=== PATIENT | male | born 1940 | race Caucasian/White ===

== ENCOUNTER 2018-07-17 09:54 | Observation (INO) ==
[2018-07-17] MEDS ORDERED: CLINDAMYCIN INJ 900 MG in PREMIX 1 EACH IV STA (10:03)
[2018-07-17] MEDS ORDERED: ASPIRIN 325 MG TABLET ONE (10:26)
[2018-07-17 10:46] LABS: Basophils % 0.6 % (0.0-0.8); Eosinophils # 0.1 10*3/uL (0.0-0.87); Eosinophils % 2.1 % (0.00-10.9); Hematocrit 39.8 VOL% (42.0-52.0); Hemoglobin 13.2 GM/DL (14.0-18.0); Immature Granulocytes % 0.4 %; Immature Granulocytes Absolute 0.02 #; Lymphocytes # 1.2 10*3/uL (1.4-4.0); Lymphocytes % 25.2 % (21.2-54.2); Mean Corpuscular HGB Conc 33.2 GM/DL (32-36); Mean Corpuscular Hemoglobin 30 PG (27-34); Mean Corpuscular Volume 90.9 FL (87-102); Mean Platelet Volume 10.5 FL (9.6-12.0); Monocytes # 0.7 10*3/uL (0.11-0.8); Monocytes % 13.4 % (1.7-12.7); Neutrophils # 2.8 10*3/uL (1.4-7.4); Neutrophils % 58.3 % (38.7-73.9); Platelet Count 119 T/CUMM (130-400); Red Blood Count 4.38 MC/CUMM (3.8-5.5); White Blood Count 4.8 T/CUMM (4-12)
[2018-07-17] MEDS ORDERED: ASPIRIN 325 MG TABLET PO STA (10:55)
[2018-07-17 10:57] LABS: PT Patient Result 10.4 SECS; Partial Thromboplastin Time 23.8 SECS (0-40)
[2018-07-17 11:09] LABS: Alanine Aminotransferase 34 U/L (16-61); Albumin 3.6 G/DL (3.4-5.0); Alkaline Phosphatase 63 U/L (45-117); Aspartate Amino Transferase 19 U/L (0-37); Blood Urea Nitrogen 20 MG/DL (7-18); Calcium 8.5 MG/DL (8.5-10.1); Glucose 144 MG/DL (74-106); Potassium 4.3 MMOL/L (3.5-5.1); Sodium 136 MMOL/L (136-145); Total Protein 6.8 G/DL (6.4-8.3); Troponin I < 0.015 NG/ML (0.00-0.045)
[2018-07-17] MEDS ORDERED: ONDANSETRON 4 MG/2 ML VIAL IV PRN (11:59)
[2018-07-17] MEDS ORDERED: ACETAMINOPHEN 325 MG TABLET PO PRN (11:59)
[2018-07-17] MEDS ORDERED: SODIUM CHLORIDE 0.45% 1,000 ML IV SCH (12:00)
[2018-07-17] MEDS ORDERED: PANTOPRAZOLE 40 MG TABLET PO PRN (16:55)
[2018-07-17] MEDS ORDERED: NITROGLYCERIN SL 0.4 MG TABLET SL PRN (16:55)
[2018-07-17] MEDS ORDERED: DEXTROSE 50% 25 GM/50 ML SYRINGE IV PRN (16:57)
[2018-07-17] MEDS ORDERED: GLUCAGON 1 MG VIAL IM PRN (16:57)
[2018-07-17] MEDS ORDERED: ENOXAPARIN 40 MG/0.4 ML SYRINGE SUBCUT SCH (21:00)
[2018-07-17] MEDS ORDERED: FINASTERIDE 5 MG TABLET PO SCH (21:00)
[2018-07-17] MEDS: INSULIN LISPRO 100 UNIT/ML SUBCUT SCH (22:27)
[2018-07-17] MEDS: METHENAMINE HIPPURATE 1 GM TABLET PO SCH (22:28)
[2018-07-17] MEDS: APIXABAN 5 MG TABLET PO SCH (22:29)
[2018-07-17] MEDS: DOCUSATE SODIUM 100 MG CAPSULE PO SCH (22:29)
[2018-07-17] MEDS: OMEGA 3 ACID ETHYL ESTERS 1 GM CAPSULE PO SCH (22:29)
[2018-07-18 06:10] LABS: Risk Ratio 3.45
[2018-07-18] MEDS ORDERED: PANTOPRAZOLE 40 MG TABLET PO SCH (09:00)
[2018-07-18] MEDS ORDERED: ASPIRIN EC 81 MG TABLET PO SCH (09:00)
[2018-07-18] MEDS ORDERED: ATORVASTATIN 40 MG TABLET PO SCH (09:00)
[2018-07-18] MEDS ORDERED: amLODIPine 5 MG TABLET PO SCH (09:00)
[2018-07-18] MEDS ORDERED: hydroCHLOROthiazide 25 MG TABLET PO SCH (09:00)
[2018-07-18] MEDS ORDERED: METOPROLOL SUCCINATE XL 50 MG TABLET PO SCH (09:00)
[2018-07-18] MEDS ORDERED: LISINOPRIL 10 MG TABLET PO SCH (09:00)
[2018-07-18] MEDS: INSULIN LISPRO 100 UNIT/ML SUBCUT SCH ×3 (09:56→18:27)
[2018-07-18] MEDS: METHENAMINE HIPPURATE 1 GM TABLET PO SCH (09:59)
[2018-07-18] MEDS: OMEGA 3 ACID ETHYL ESTERS 1 GM CAPSULE PO SCH (10:03)
[2018-07-18] MEDS: APIXABAN 5 MG TABLET PO SCH (10:04)
[2018-07-18] MEDS: DOCUSATE SODIUM 100 MG CAPSULE PO SCH (10:11)
[2018-07-18 16:35] VITALS: BP 120/55
== END 2018-07-18 18:15 | disposition home or self-care (01) ==
LOC: N.EDINP 09:54 → N.ED 09:54 → N.4E 13:05
PROVIDERS: ADMIT Family Medicine; ATTEND Family Medicine

== ENCOUNTER 2021-10-10 12:02 | Observation (INO) ==
[2021-10-10] MEDS ORDERED: ASPIRIN 325 MG TABLET PO STA (12:32)
[2021-10-10 13:07] LABS: Basophils % 0.5 % (0.0-0.8); Eosinophils # 0.1 10*3/uL (0.0-0.87); Eosinophils % 2.4 % (0.00-10.9); Hematocrit 35.7 VOL% (42.0-52.0); Hemoglobin 11.4 GM/DL (14.0-18.0); Immature Granulocytes % 0.2 %; Immature Granulocytes Absolute 0.01 #; Lymphocytes # 1.2 10*3/uL (1.4-4.0); Lymphocytes % 30.1 % (21.2-54.2); Mean Corpuscular HGB Conc 31.9 GM/DL (32-36); Mean Corpuscular Volume 89.7 FL (87-102); Mean Platelet Volume 10.5 FL (9.6-12.0); Monocytes % 13.2 % (1.7-12.7); Neutrophils % 53.6 % (38.7-73.9); Platelet Count 121 T/CUMM (130-400); Red Blood Count 3.98 MC/CUMM (3.8-5.5); Red Cell Distribution Width 14.4 % (9.3-17.3); White Blood Count 4.1 T/CUMM (4-12)
[2021-10-10 13:18] LABS: INR 1.1; PT Patient Result 12.1 SECS (10.5-12.0); Partial Thromboplastin Time 27.7 SECS (23.8-32.1)
[2021-10-10 13:31] LABS: Alanine Aminotransferase 27 U/L (16-61); Albumin 3.7 G/DL (3.4-5.0); Alkaline Phosphatase 72 U/L (45-117); Aspartate Amino Transferase 26 U/L (0-37); Blood Urea Nitrogen 28 MG/DL (7-18); Calcium 9.1 MG/DL (8.5-10.1); Carbon Dioxide 27 MMOL/L (21-32); Estimated Glom Filtration Rate 70 ML/MIN; Glucose 117 MG/DL (74-106); Osmolality,Calculated 292.8 MOS/KG (273-304); Potassium 4.8 MMOL/L (3.5-5.1); Risk Ratio 3.49; Sodium 144 MMOL/L (136-145); Total Protein 6.8 G/DL (6.4-8.2); VLDL Cholesterol 27.2 MG/DL
[2021-10-10 13:53] LABS: Mucus,Urine Occasional /LPF (Occasional); RBC,Urine 2 /HPF (0-4); Squamous Epithelial Cell,Urine Occasional /HPF (0-10)
[2021-10-10 13:55] LABS: Glucose,Urine (UA) Negative (Negative); Ketones,Urine Negative (Negative); Protein,Urine Negative (Negative); Urine Appearance Clear (Clear); Urine Color Yellow (Yellow); Urine Specific Gravity 1.013 (1.001-1.035)
[2021-10-10 13:56] LABS: Bilirubin,Urine Negative (Negative); Blood, Urine Trace mg/dL (Negative); Nitrite,Urine Negative (Negative); Urine Urobilinogen 0.2 eU/dL (<2.0)
[2021-10-10 14:06] LABS: Barbiturates Screen,Urine Negative (Negative); Benzodiazepines Screen,Urine Negative (Negative); Cannabinoid Screen,Urine Negative (Negative); Opiate Screen,Urine Negative (Negative); Phencyclidine Screen,Urine Negative (Negative)
[2021-10-10] MEDS ORDERED: ONDANSETRON 4 MG/2 ML VIAL IV PRN (15:16)
[2021-10-10] MEDS ORDERED: ACETAMINOPHEN 325 MG TABLET PO PRN (15:16)
[2021-10-10] MEDS: SODIUM CHLORIDE 0.9% 1,000 ML IV SCH ×2 (16:22→23:47)
[2021-10-10] MEDS ORDERED: ASPIRIN CHEW 81 MG TABLET PO SCH (18:28)
[2021-10-10] MEDS ORDERED: ASPIRIN CHEW 81 MG TABLET PO ONE (18:35)
[2021-10-10] MEDS ORDERED: NITROGLYCERIN SL 0.4 MG TABLET SL PRN (19:09)
[2021-10-10] MEDS: APIXABAN 5 MG TABLET PO SCH (20:37)
[2021-10-10] MEDS: DOCUSATE SODIUM 100 MG CAPSULE PO SCH (20:37)
[2021-10-10] MEDS: METHENAMINE HIPPURATE 1 GM TABLET PO SCH (20:37)
[2021-10-10] MEDS: OMEGA 3 ACID ETHYL ESTERS 1 GM CAPSULE PO SCH (20:38)
[2021-10-10] MEDS: TICAGRELOR 90 MG TABLET PO SCH (20:43)
[2021-10-10] MEDS: ISOSORBIDE MONONITRATE 20 MG TABLET PO SCH (20:43)
[2021-10-10] MEDS ORDERED: ATORVASTATIN 80 MG TABLET PO SCH (21:00)
[2021-10-10] MEDS ORDERED: FINASTERIDE 5 MG TABLET PO SCH (21:00)
[2021-10-10] MEDS ORDERED: ZALEPLON 5 MG CAPSULE PO SCH (21:00)
[2021-10-11] MEDS ORDERED: METOPROLOL SUCCINATE XL 25 MG TABLET PO SCH (09:00)
[2021-10-11] MEDS ORDERED: hydroCHLOROthiazide 12.5 MG CAPSULE PO SCH (09:00)
[2021-10-11] MEDS ORDERED: PANTOPRAZOLE 40 MG TABLET PO SCH (09:00)
[2021-10-11] MEDS ORDERED: amLODIPine 5 MG TABLET PO SCH (09:00)
[2021-10-11] MEDS ORDERED: lisinopriL 5 MG TABLET PO SCH (09:00)
[2021-10-11] MEDS: OMEGA 3 ACID ETHYL ESTERS 1 GM CAPSULE PO SCH (09:15)
[2021-10-11] MEDS: APIXABAN 5 MG TABLET PO SCH (09:15)
[2021-10-11] MEDS: TICAGRELOR 90 MG TABLET PO SCH (09:16)
[2021-10-11] MEDS: DOCUSATE SODIUM 100 MG CAPSULE PO SCH (09:16)
[2021-10-11] MEDS: METHENAMINE HIPPURATE 1 GM TABLET PO SCH (09:16)
[2021-10-11] MEDS: ISOSORBIDE MONONITRATE 20 MG TABLET PO SCH (09:19)
[2021-10-11 11:19] VITALS: BP 113/54
[2021-10-11] MEDS ORDERED: ASPIRIN CHEW 81 MG TABLET PO SCH (18:30)
== END 2021-10-11 11:52 | disposition home or self-care (01) ==
LOC: N.3E 12:02 → N.ED 12:02 → N.3E 15:47
PROVIDERS: ADMIT Family Medicine; ATTEND Family Medicine